=== PATIENT | female | born 1955 | race Caucasian/White ===

== ENCOUNTER → 2017-08-21 | Outpatient (CLI) | payer OTHER ==
[2014-07-28 20:35] VITALS: BP 129/75
[~2017-08-21] MED LIST: AMBIEN10 MG PO; CELEBREX200 MG PO; CYMBALTA 60MG60 MG PO; ESTRACE0.5 MG PO; HYDRODIURIL25 MG PO; LEVALBUTEROL IH; MULTIPLE VITAMI1 CAP PO; OMEPRAZOLE20 MG PO; PLAQUENIL200 MG PO; PREDNISONE20 M1 PO; REQUIP0.5 MG PO; SINGULAIR 110 MG/TAB PO; TEMOVATE0.05% TP; TESSALON P100 MG/CAP PO; ZYRTEC 10MG10 MG PO
[2017-08-21 12:55] LABS: URINE APPEARANCE HAZY; URINE BILIRUBIN NEGATIVE (NEGATIVE); URINE BLOOD 50 ery/uL (NEGATIVE); URINE COLOR YELLOW; URINE GLUCOSE NEGATIVE (NEGATIVE); URINE KETONE NEGATIVE (NEGATIVE); URINE LEUKOCYTE ESTERASE 1+ (NEGATIVE); URINE NITRATE NEGATIVE (NEGATIVE); URINE PROTEIN(semi-quant) NEGATIVE (NEGATIVE); URINE UROBILINOGEN NORMAL (NORMAL); URINE WBC 31-50 /hpf (0-3)
== END ==
LOC: LAB 11:17
PROVIDERS: Nurse Practitioner Family
DX: R30.0 Dysuria (principal); R31.29 Other microscopic hematuria; Z88.1 Allergy status to other antibiotic agents; Z88.0 Allergy status to penicillin